=== PATIENT | female | born 1990 | race Caucasian/White ===

== ENCOUNTER 2016-08-28 21:00 | Emergency (ER) | payer BC, OTHER ==
[2016-08-28] MEDS ORDERED: Acetaminophen/HYDROcodone 325-10 MG Tab PO ONE (21:19)
[2016-08-28] MEDS ORDERED: Metoclopramide 10 MG/2 ML SDV IM ONE (21:21)
[2016-08-28] MEDS ORDERED: Take Home: Acetaminophen/HYDROcodone 325-5 MG, 5 Tab Pack PO ONE (21:23)
--- NOTE | 2016-08-29 22:48 | ER ---
Date of Service: 08/28/2016 SUBJECTIVE: Nery presents to the emergency room with complaints of low back pain. She states that she lifted in a gym and states that following that she had been sitting in class during orientation. She states that she developed worsening discomfort to her right lower back throughout the day today. The patient states that she has been experiencing some either neuropathic pain in her right lower extremity or muscle spasms. She states that the discomfort in her leg is not consistent and is intermittent in nature. PAST MEDICAL HISTORY: Denies. MEDICATIONS: Ortho-Cyclen. ALLERGIES: NKDA. REVIEW OF SYSTEMS: Denies any fever or chills, difficulties with incontinence or retention of stool or feces. No consistent radiculopathy. She denies any saddle anesthesia. She denies any significant trauma. PHYSICAL EXAMINATION: General: This is a 26-year-old female patient, in no acute distress. Vital Signs: Blood pressure is 129/75, heart rate is 91, respiratory rate is 18, O2 saturations 99%. Skin: Warm, pink, and dry. Musculoskeletal: The patient does have some muscle spasm to the paraspinal muscles and lumbar spine. No obvious step-offs or deformity noted. She does have again some muscle spasm. Neurovascular, circulation, sensation, and motor function are all within normal limits in the distal portion of her lower extremities. Her patellar reflexes are 2+. She does have a positive straight leg raise on the left. ASSESSMENT: Mechanical low back pain. PLAN: I did give her a shot of Norflex and Petros 10/325. I did give her a prescription for 10 Lortab 10/325 with instructions to take 1 every 6 hours as needed for pain and is refractory to ibuprofen 600 mg every 6 hours. I also did give her a prescription for Flexeril 10 mg with instructions to take one 3 times a day for muscle spasm. We would like her to follow up in the clinic in the next 10 to 14 days if continuing to have discomfort. She was given a handout on back exercises that she can perform. All questions were answered. MWK: 08/29/2016 15:55:06 MODL: 08/29/2016 22:41:48 /[id number]
== END 2016-08-28 21:40 | disposition home or self-care (01) ==
LOC: VM.ED 21:00
DX: M62.830 Muscle spasm of back (principal)
CPT/HCPCS: 96372; 99283; A9270; J2360